=== PATIENT | female | born 1950 | race Caucasian/White ===

== ENCOUNTER 2017-01-18 01:48 | Inpatient (IN) | payer MEDICARE, MEDICAID ==
[~2017-01-18] VITALS: Ht 174 cm; Wt 112.2 kg
[~2017-01-18 01:48] MED LIST: ADVAIR 500-501 EACH IH; ADVAIR DIS1 PUFF/DO2 IH; ASACOL HD800 MG PO; ATROVENT HFA12.9 G1 IH; AUGMENTIN875 MG PO; BONIVA150 MG PO; BUSPAR DPS10 MG PO; BYSTOLIC5 MG PO; CALCIUM600 MG PO; CARDIZEM CD120 MG PO; COLACE-DPS100 MG PO; COMBIVENT RESPIM4 GM IH; DAILY MULTIPLE1 EAC1 PO; DELTASONE DPS10 MG PO; DELTASONE DPS20 MG PO; DELTASONE DPS5 MG PO; DUONEB DPS3 ML IH; EFFEXOR XR75 MG PO; ELAVIL-DPS25 MG PO; FLAGYL500 MG PO; FLORINEF0.1 MG PO; FLOVENT 220MCG12 GM IH; IRON325 M1 PO; K-PHOS ORIGINA500 MG PO; KLOR-CON M2020 ME1 PO; LEVAQUIN500 MG PO; LIPITOR DPS10 MG PO; LIPITOR10 MG PO; MAALOX DPS30 ML PO; MUCOMYST 10% DPS4 ML IH; NASONEX17 GM NS; NEXIUM40 MG PO; OXY IR DPS5 MG PO; PROAIR HFA8.5 GM IH; PROTONIX40 MG PO; ROBITUSSIN DM D30 ML PO; ROBITUSSIN200 MG/10 PO; SEPTRA DS PO; SOMA-DPS350 MG PO; SOMA350 MG PO; SPIRIVA18 MCG IH; SULFADIAZINE500 MG PO; SURFAK DPS240 MG PO; SURFAK240 MG PO; SYNTHROID DPS0.2 MG PO; SYNTHROID150 MCG PO; TYLENOL DPS325 MG PO; ULTRAM DPS50 MG PO; VESICARE10 MG PO; VITAMIN D-32000 UNI1 PO; VITAMIN D2000 UNI1 PO; [UNRECOGNIZED DRUG - OTHER] PO; [UNRECOGNIZED DRUG - OTHER] PO
--- NOTE | 2017-01-23 02:33 | ER ---
ADMIT: 01/18/2017 RM/LOC: ER [facility] MR#: [id number] [address] [place], [place] [address] PATRICIO MEYERS [address] [place] [address] [address] [place] [address] Emergency Room Report SEX: F AGE: 66 : 1950 DATE: 01/18/2017 TIME: 0148 hours. Please refer to my T-sheet for complete H and P. HISTORY OF PRESENT ILLNESS: Briefly, the patient is a 66-year-old, with multiple comorbidities, who comes in with a fever and cough for 12 hours. She has not been on any recent antibiotics. She has also had some abdominal cramps, vomiting, and not feeling well. PHYSICAL EXAMINATION: VITAL SIGNS: Blood pressure 104/61, pulse 136, respirations 18, temp 101.5, saturating 93%. GENERAL: She is in no acute distress. HEENT: Dry mucous membranes. LUNGS: Coarse with some rhonchi. HEART: Tachycardic. ABDOMEN: Soft, really nontender. SKIN: No rash. EMERGENCY DEPARTMENT COURSE: Chest x-ray revealed cardiomegaly, really no major acute findings. CBC was normal except white count 21.5, lactate was 3.7. Coags normal. UA was still pending. Blood cultures x2 were sent. Cardiac enzymes were okay. Chemistries okay except potassium 3, magnesium 1.5. EKG was sinus tach, rate 121, right bundle-branch block, nonspecific changes. We did the whole sepsis pathway. She has fluoroquinolone and cephalosporin allergy, we did vancomycin and Zosyn. I did do a CT scan of her chest because she remained hypoxic. Her chest CT revealed right lower lobe pneumonia, mediastinal adenopathy. She improved. She gets a fluid bolus here. I talked to Dr. Stephens, and she will be admitted. ASSESSMENT: 1. Pneumonia. 2. Sepsis. PLAN: Admit to the hospital. Ramírez Calabrese MD/ lucie JOB #: [id number] CC: Ramírez Calabrese MD, Attending Physician Sal Kaiser DO, Family Physician
[2017-01-23] MEDS ORDERED: HCTZ12.5 MG PO (13:40)
[2017-01-23] MEDS ORDERED: [UNRECOGNIZED DRUG - OTHER] PO (13:41)
[2017-01-23] MEDS ORDERED: EFFEXOR XR75 MG PO (13:43)
[2017-01-23] MEDS ORDERED: ELAVIL-DPS25 MG PO (13:43)
[2017-01-23] MEDS ORDERED: TYLENOL DPS325 MG PO (13:44)
[2017-01-23] MEDS ORDERED: MAALOX DPS30 ML PO (13:44)
[2017-01-23] MEDS ORDERED: SURFAK DPS240 MG PO (13:44)
--- NOTE | 2017-01-24 08:02 | HP ---
ADMIT: 01/18/2017 RM/LOC: [address] [facility] MR#: [id number] [address] [facility] [address] [place], [place] [address] PATRICIO GARCIAS [address] [place] [address] 11 [place] [address] History and Physical SEX: F AGE: 66 : 1950 DATE OF SERVICE: HISTORY OF PRESENT ILLNESS: Ms. Garcias is an elderly patient of Dr. Kaiser. She has a known past medical history of severe COPD, hypothyroidism, osteoporosis, gastroesophageal reflux disease, adrenal insufficiency, irritable inflammatory bowel disease, hyperlipidemia, depression. She had an upper respiratory tract infection several weeks ago and was treated with oral antibiotics. She says, she has developed nausea, vomiting, and has had diarrhea since stopping the antibiotics. She presents to the emergency room with nausea, vomiting, evidence of fever of 101, abdominal cramps. Her evaluation in the emergency room, showed a chest x-ray with cardiomegaly, no acute finding. CBC with normal white count of 21,000. Lactic acid elevated at 3.7. Coags were normal. UA showed no acute abnormalities. Blood cultures were sent. Cardiac enzymes were negative. She was found to be hypokalemic, magnesium was 1.5. EKG shows sinus tach with right bundle-branch block. Nonspecific ST-T wave changes. She underwent further assessment with a CTA of her chest, which showed pneumonia in her right lower lobe, mild mediastinal adenopathy without any other abnormalities. Subsequently, she was admitted for continued evaluation and care. SOCIAL HISTORY: Noncontributory. She is undergoing a separation and divorce. She does not smoke, but has had a history of tobacco use in the past. MEDICATIONS: Home medications are numerous. I do not have them available. PHYSICAL EXAMINATION: GENERAL: She is alert. HEART: Regular rhythm. Mildly tachycardic. LUNGS: Diminished to auscultation with coarse breath sounds. ABDOMEN: Rounded, soft, mildly tender. Positive bowel sounds present. EXTREMITIES: No evidence of edema. ASSESSMENT: Admission of a 66-year-old, white female with: 1. Severe chronic obstructive pulmonary disease. 2. Recent pneumonia. 3. Evidence on CT scan of right lower lobe pneumonia with mild adenopathy. 4. History of hypothyroidism. ADMIT: 01/18/2017 RM/LOC: [address] [facility] MR#: [id number] [address] [id number] PATRICIO GARCIAS [address] [place] [address] [place] [address] History and Physical SEX: F AGE: 66 : 1950 5. Osteoporosis. 6. Reflux disease. 7. Adrenal insufficiency. 8. Irritable bowel disease. 9. Hyperlipidemia. 10.Depression. She was found on admission to have evidence of hypokalemia and hypomagnesemia, which were replaced. First set of cardiac enzymes were negative. She does have leukocytosis. With her history of inflammatory bowel disease and her recent antibiotics, we will check C. diff, as well as do a CT of her abdomen to purchasement of her colon. We will continue to follow closely. Her cardiovascular status is stable at this time. Amie Stephens MD/ lucie JOB #: [id number] CC: Sal Kaiser DO, Attending Physician Sal Kaiser DO, Family Physician
--- NOTE | 2017-03-06 08:20 | DS ---
ADMIT: 01/18/2017 RM/LOC: 419 [facility] MR#: [id number] [id number] [place], [place] [address] PATRICIO MEYERS [address] [place] [address] 11 [place] [address] Discharge Summary SEX: F AGE: 66 : 1950 ADMISSION DATE: 01/18/2017 DISCHARGE DATE: 01/22/2017 REASON FOR HOSPITALIZATION: Pneumonia, early sepsis. HISTORY OF PRESENT ILLNESS: The patient presented to the emergency room with cough, congestion, fever, abdominal cramps, vomiting, and not feeling well. In the Emergency Department, she had a blood pressure of 104/61, a pulse of 136, with a temperature of 101.5. HOSPITAL COURSE: She was admitted to the hospital with diagnosis of pneumonia and sepsis, started on broad-spectrum antibiotic therapy, IV fluids, DuoNeb treatment. She was having nausea and vomiting, so we had her go through with CAT scan and C. difficile assessment. She had hypokalemia which was replaced. For her healthcare-acquired pneumonia, she received vancomycin and Zosyn. For her severe COPD, she received steroids and nebulizer treatments, the steroids also to cover her chronic steroid and adrenal insufficiency. By 01/22, she was feeling well, wanted to go home. Her lungs were clear. Chest x-ray showed no interval changes, especially in her right base and we felt she was appropriate for dismissal. FINAL DIAGNOSES: 1. Pneumonia. 2. Chronic obstructive pulmonary disease. 3. Hypokalemia. 4. Diarrhea. 5. Gastroenteritis. 6. Colitis. She is return to see me in 5-7 days and have a basic metabolic profile at followup. I left her on Augmentin and otherwise medications can be reviewed in her dismissal orders. Sal Kaiser DO/ modl JOB #: [id number] CC: Sal Kaiser DO, Attending Physician Sal Kaiser DO, Family Physician
[2017-06-14] MEDS ORDERED: [UNRECOGNIZED DRUG - OTHER] PO (19:21)
[2017-06-14] MEDS ORDERED: LIPITOR DPS10 MG PO (19:21)
[2017-06-14] MEDS ORDERED: AZULFIDINE DPS500 MG PO (19:21)
[2017-06-14] MEDS ORDERED: ULTRAM DPS50 MG PO (19:22)
[2017-06-14] MEDS ORDERED: ELAVIL-DPS25 MG PO (19:22)
[2017-06-14] MEDS ORDERED: PREDNISONE10 MG PO (19:22)
[2017-06-14] MEDS ORDERED: [UNRECOGNIZED DRUG - OTHER] PO ×2 (19:22→19:30)
[2017-06-14] MEDS ORDERED: KLOR-CON M2020 ME1 PO (19:23)
[2017-06-14] MEDS ORDERED: [UNRECOGNIZED DRUG - OTHER] PO (19:23)
[2017-06-14] MEDS ORDERED: DELTASONE DPS10 MG PO (19:23)
[2017-06-14] MEDS ORDERED: FLORINEF0.1 MG PO (19:24)
[2017-06-14] MEDS ORDERED: COZAAR DPS25 MG PO (19:24)
[2017-06-14] MEDS ORDERED: NORCO 5-325 TA1 EACH PO (19:24)
[2017-06-14] MEDS ORDERED: ATROVENT HFA12.9 G1 IH (19:24)
[2017-06-14] MEDS ORDERED: BUSPAR DPS10 MG PO (19:25)
[2017-06-14] MEDS ORDERED: BONIVA150 MG PO (19:25)
[2017-06-14] MEDS ORDERED: PROVENTIL HFA6.7 GM IH (19:25)
[2017-06-14] MEDS ORDERED: CARAFATE DPS1 GM PO (19:25)
[2017-06-14] MEDS ORDERED: ADULT MULTI G200 MCG PO (19:26)
[2017-06-14] MEDS ORDERED: NEURONTIN DPS300 MG PO (19:27)
[2017-06-14] MEDS ORDERED: FEOSOL-DPS325 MG PO (19:27)
[2017-06-14] MEDS ORDERED: B COMPLEX1 EACH PO (19:27)
[2017-06-14] MEDS ORDERED: ASCORBIC ACID500 MG PO (19:28)
[2017-06-14] MEDS ORDERED: VITAMIN D2000 UNI1 PO (19:28)
[2017-06-14] MEDS ORDERED: DUONEB DPS3 ML IH (19:28)
[2017-06-14] MEDS ORDERED: TINACTIN 1% PWD45 GM TP (19:29)
[2017-06-14] MEDS ORDERED: MAALOX DPS30 ML PO (19:29)
[2017-06-14] MEDS ORDERED: TYLENOL DPS325 MG PO (19:29)
[2017-06-14] MEDS ORDERED: TYLENOL EXTRA500 M1 PO (19:30)
== END 2017-01-22 12:15 | disposition home or self-care (01) | DRG 871 ==
LOC: ER 01:48 → 4PCU 04:20
PROVIDERS: ADMIT Internal Medicine
DX: A41.9 Sepsis, unspecified organism (principal); J18.9 Pneumonia, unspecified organism; J44.9 Chronic obstructive pulmonary disease, unspecified; E27.40 Unspecified adrenocortical insufficiency; R65.20 Severe sepsis without septic shock; I45.10 Unspecified right bundle-branch block; R09.02 Hypoxemia; E03.9 Hypothyroidism, unspecified; M81.0 Age-related osteoporosis without current pathological fracture; K21.9 Gastro-esophageal reflux disease without esophagitis; E78.5 Hyperlipidemia, unspecified; F32.9 Major depressive disorder, single episode, unspecified; K58.9 Irritable bowel syndrome, unspecified; E87.6 Hypokalemia; E83.42 Hypomagnesemia

== ENCOUNTER → 2017-02-16 | Outpatient (CLI) | payer MEDICARE, MEDICAID ==
[~2017-02-16] MED LIST changes: +ADULT MULTI G200 MCG PO; +ASCORBIC ACID500 MG PO; +AZULFIDINE DPS500 MG PO; +B COMPLEX1 EACH PO; +CARAFATE DPS1 GM PO; +COZAAR DPS25 MG PO; +FEOSOL-DPS325 MG PO; +HCTZ12.5 MG PO; +NEURONTIN DPS300 MG PO; +NORCO 5-325 TA1 EACH PO; +PREDNISONE10 MG PO; +PROVENTIL HFA6.7 GM IH; +TINACTIN 1% PWD45 GM TP; +TYLENOL EXTRA500 M1 PO; +[UNRECOGNIZED DRUG - OTHER] PO
== END | disposition home or self-care (01) ==
LOC: PTH.S 15:45
DX: R30.0 Dysuria (principal)